=== PATIENT | female | born 1980 ===

== ENCOUNTER 2021-01-13 08:30 | Outpatient (RCR) | payer BC, SELFPAY ==
[2020-12-31 12:02] VITALS: BMI 18.3
--- NOTE | 2020-12-31 12:30 | PC.ADMIT ---
Patient is a 40 year old female who is in her second trimester of with her first child. She was referred by [facility] inpatient unit where she was hospitalized from 12/23/20-12/28/20 for an increase in depression with SI with multiple plans including overdosing on her medication. Currently patient denied SI. She reports increased anxiety with panic attacks. Patient reports long history of depression and anxiety. Patient reports trigger to recent episode was learning she was . Not sure if she wants to continue the . Patient struggling with obsessive worry regarding having the necessary parental skills. In addition, patient reports her brother has hemophilia and she is a carrier and is concerned that her unborn son will contract the disease as she stated he has a 50 percent change. Patient reports losing weight during her first trimester d/t nausea and vomiting and reports losing weight in the second trimester d/t depression and anxiety which caused a decrease in appetite and decrease in fluid intake. She reports that her appetite has improved since hospitalization and has gained 7-8 lbs back of the 15 lbs she had lost. She currently reports meeting her calorie goals and fluid intake. Patient is currently underweight. Patient has a high risk and is being followed by Dr Margy FLORES. 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 Patient does report that her spouse is supportive. Patient is attending PHP as a step down to treatment. Looking into taking FMLA from work. Patient is alert and oriented x4. Calm and cooperative. Denied SI. Patient gave permission to email her a copy of her safety plan. I asked patient if she started to feel unsafe who could she contact and she stated her . Patient has the crisis number if needed. Patient reports taking her medications as prescribed. Medications reconciled with patient and [facility] inpatient unit d/c paperwork.
--- NOTE | 2020-12-31 13:19 | P.HPPSP_ITS ---
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 ) Narrative: Ms. Armas is a 40 year-old female, referred from the [facility] inpatient unit for continued stabilization of severe symptoms of depression and anxiety. She is currently 21 weeks . 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 She has no children. Client was hospitalized at [facility] from 12/23/20 through 12/28/20, after being referred by her outpatient psychiatrist for increased depression and SI. She had reported at that time that she was experiencing passive SI, ambivalence and indecisiveness about the , self-doubt, and panic attacks. She had also been experiencing severe hyperemesis. 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 She and her had also bought an older house that requires a lot of updating and work. 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 Upon interview today, client states that she currently is experiencing the same struggles that she was when she was hospitalized. She does however explain that she is not having thoughts of self harm, denies any SI. She describes symptoms today as ?incredible self-doubt about being able to be a parent . She states that she is considering termination of , and is trying to work through her feelings surrounding the at this time. Client reports that she was anxious during childhood, and developed depression while in college. She has had therapy in the past, and is also currently working with a psychiatrist. She currently does not have a therapist. Past medication trials include sertraline (did not help), and lexapro (worked well for a long time, then lost efficacy). Ashley reports that she was raised by both parents, and has a younger brother. She met all developmental milestones as expected, and graduated from high school and college. She is a registered nurse. She describes life growing up as supportive, and states that she had good relationships with both of her parents. Her younger brother has hemophilia. She was tearful during interview, and endorses depressed mood, anhedonia, low energy, low self-esteem, difficulty concentrating, and passive SI (no plan, no intent). Also endorses anxiety symptoms such as excessive worrying about parenting and her unborn child's health. She reports intrusive/obsessive thoughts regarding whether or not she should terminate her . She states that she is aware there is only a short window of time for her to make this decision. She is hoping to learn skills to help manage symptoms of anxiety and depression while in PHP, to process her feelings, and learn more effective coping skills going forward. Past Psychiatric History: IPLOC 1X, at [facility], 12/23/20 through 12/28/20. No hx of PHP, IOP. Hx of therapy, no therapist currently. Has outpatient psychiatrist, hx of treatment with SSRI's. 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 Mother was diagnosed with bipolar disorder at age 60. Social History: 7 years, supportive. No children. Works as nurse. Substance History: denies any substance use / abuse history Trauma History: None Diagnostics Vital Signs (24Hr): Body Mass Index 18.3 Meds/Allergies Allergies Allergies Allergy/AdvReac Type Severity Reaction Status Date / Time promethazine [From Phenergan] AdvReac Muscle Verified 12/31/20 11:21 Fasciculation Mental Status Exam Mental Status Exam Narrative: Well-developed, thin female, in NAD. Well groomed, appropriately dressed for age and occasion. Alert and oriented x4. And eye contact within normal limits. No involuntary movements noted, motor activity calm, posture within normal limits. Patient was, cooperative during interview. Speech was fluent, unimpaired, normal rate, rhythm, and volume. Cognition appears intact. Mood described as depressed and anxious. Affect depressed, anxious, client tearful during interview. No evidence of delusional thoughts or hallucinations noted or reported. Patient endorses passive SI, denies any type of plan or intent. Denies SIB. No HI. Memory intact., appears to be reliable historian. Judgment and insight fair. Ambulation not observed. Depressive Symptoms: Increased Anxiety, Diff. Making Decisions, Crying Spells, Loss of Int. in Activity, Feelings of Worthlessness, Hopelessness, Feelings of Guilt, Increased Fatigue, Thoughts of /Suicide (passive, no intnet/plan), Loss of Energy and Difficulty Concentrating Telehealth Telehealth Location of provider rendering services: practice address Location of patient: address on file Patient Identification confirmed using: Name, : Yes Telehealth method: video Patient verbally consented to treatment: Yes Patient verbally consented to billing insurance company: Yes Patient informed of any privacy concerns related to visit: Yes Time spent with patient (mins): 45 Assessment & Plan Assessment & Plan (1) Major depressive disorder, recurrent severe without psychotic features: Status: Acute Code(s): F33.2 - Major depressive disorder, recurrent severe without psychotic features Assessment and Plan: Client endorses symptoms of depression including decreased energy, poor concentration, anhedonia, guilt, passive SI. Currently taking mirtazapine, whi ch was started inpatient. Prozac has recently been increased to 80 mg daily several weeks ago. Client currently takes Wellbutrin SR 200 mg daily. Medications discussed, client would like to continue for now at these medications and dosages, as she has recently had to changes. She also expressed concern regarding the mirtazapine. Medication discussed, including risks/benefits. She states that she would prefer any medication changes be discussed with her outpatient psychiatrist, as she is concerned regarding her . Client was provided information regarding [employer] [facility] psychiatry website, and encouraged to peruse it. She also was given a toll free phone number in [place] regarding intra- mood Disorders support resources, such as chapters for local chapters of international support network, online support groups, etc. (2) Generalized anxiety disorder: Status: Acute Code(s): F41.1 - Generalized anxiety disorder Assessment and Plan: Client reports she is utilizing p.r.n. Klonopin 0.5 mg at night. She states that this is helping her to sleep, as she experiences anxiety more at bedtime. She also reports the mirtazapine is helping her to sleep. She states that she is experiencing obsessional thoughts, describes them as intrusive at times, regarding whether or not she will terminate , due to doubts regarding her ability to be a parent, and the possibility her son could have hemophilia. She states that this causes her great anxiety, and that she is trying to work through this decision making process. She believes that her increased anxiety has also caused her to have hyperemesis. She states that it has improved, and that she is taking Reglan for this. She states the mirtazapine has also helped increase her appetite. Assessment and Plan: 1. Continue current medication regimen. Client does not require any refills. 2. Follow-up as per protocol. 3. Continue to offer support and resources as appropriate. Patient educated on: diagnosis, medication risk/benefits, therapeutic strategies and medical condition Informed Consent: understands Reason for continued partial hosp. stay Substantial Risk for: harm to self, inability to function and med/psych decompensation Certification I certify that partial hospital treatment is medically necessary due to the symptoms and problems resulting from the patient's mental illness and the failure to treat the patient at the partial hospital level of care would likely result in the patient requiring inpatient psychiatric care which could not be prevented at a less intensive level of care.
--- NOTE | 2020-12-31 14:54 | PC.NURSE ---
Case opened in clinical team
--- NOTE | 2021-01-04 11:07 | P.PNPSP_ITS ---
Subjective Subjective Date of Service: 01/04/21 Reason For Visit: Severe Major Depression Guardianship: No Medical Problems Affecting Mental Status: No Interim History: Ashley reports feeling okay today. Reports that she and her looked up support options online over weekend. They also plan to meet with a pediatric child day care center worker through [employer]. She is also considering an amniocentesis, that will help confirm as to whether her baby has hemophilia. She did report feeling an episode of panic / sense of impending doom yesterday, and took a clonazepam, with positive effect. No other psychiatric symptoms reported, no thoughts of self-harm reported. No safety concerns at this time. Medication Compliance: Yes Side effects from medications: No Attending Groups: Yes Review of Systems Acute medical concerns: No Medical Review of Systems: unchanged Review of Systems Review of Systems Yes all other systems are reviewed and are negative Reports Normal hearing present Cardiovascular: Reports no additional cardiovascular complaints Respiratory: Reports no additional respiratory complaints Gastrointestinal: Reports no additional gastrointestinal complaints Genitourinary: Reports no additional female genitourinary complaints Reports as per HPI and Reports Normal hearing present Psychiatric: Reports no additional psychiatric complaints Endocrine: Reports no additional endocrine complaints Hematologic/Lymphatic: Reports no additional hematologic/lymphatic complaints Allergic/Immunologic: Reports no additional allergic/immunologic complaints Mental Status Exam Mental Status Exam Narrative: Well developed, well nourished thin female, in no apparent distress. Patient Appearance: Well Grooomed and Appropriate Patient Orientation: Person, Place, Time and Situation Level of Consciousness: Awake, Appropriate and Alert Patient Behavior: Appropriate, Cooperative and Good Eye Contact Mood Description: Appropriate, Depressed and Anxious Affect Description: Appropriate, Depressed and Anxious Patient Cognition Impaired: No Ability to Follow Directions: Excellent Speech Pattern: Clear, Appropriate and Coherent Memory Description: Intact Hallucinations: None Delusions: Not Present Thought Process: Intact, Goal Oriented and Linear Thought Content: positive for Intact, positive for Goal Oriented and positive for Linear Depressive Symptoms: Increased Anxiety, Diff. Making Decisions, Crying Spells, Sleeping More Than Usual, Hopelessness, Feelings of Guilt, Unhappiness, Increased Fatigue, Loss of Energy and Difficulty Concentrating Judgement: Fair Diagnostics Vital Signs (24Hr): Body Mass Index 18.3 Assessment & Plan Assessment & Plan (1) Generalized anxiety disorder: Status: Acute Code(s): F41.1 - Generalized anxiety disorder Assessment and Plan: Patient reports ongoing anxiety. Reports needing to take a Klonopin yesterday as she had a sense of impending doom / panic. Reports that the Klonopin was effective. We discussed other tactics as well, such as using a mantra when experiencing the panic attack, and helping talk herself through them. (2) Major depressive disorder, recurrent severe without psychotic features: Status: Acute Code(s): F33.2 - Major depressive disorder, recurrent severe without psychotic features Assessment and Plan: Ashley reports that the weekend was difficult at times. She reports that she and her looked up various support options online, and that she found this helpful. She does report that she and her plan to speak with somebody from Pediatric Hematology with [facility]. She also plans to have an amnioc entesis, as that will help regarding if her unborn baby has hemophilia. No active SI reported, no safety concerns. She reports current medications appear to be helping, does not want a medication change at this time. Assessment and Plan: 1. Continue with current medications. 2. follow-up as per protocol. Patient educated on: diagnosis, medication risk/benefits and therapeutic strategies Informed Consent: understands Certification I certify that partial hospital treatment is medically necessary due to the symptoms and problems resulting from the patient's mental illness and the failure to treat the patient at the partial hospital level of care would likely result in the patient requiring inpatient psychiatric care which could not be prevented at a less intensive level of care. Greater than 50% of the session was spent on counseling and/or coordination of care Discharge Plan Discharge Attending provider: Ramon Houston Medications: No Action fluoxetine 40 mg Capsule 80 mg PO DAILY RF: 0 clonazepam 0.5 mg Tablet 0.5 mg PO DAILY PRN (Reason: Anxiety) RF: 0 metoclopramide HCl 10 mg Tablet 10 mg PO Q6H PRN (Reason: Nausea) RF: 0 cholecalciferol (vitamin D3) [Vitamin D3] 25 mcg (1,000 unit) Capsule 25 mcg PO DAILY RF: 0 bupropion HCl 200 mg Tablet Sustained-Release 12 Hr 200 mg PO DAILY RF: 0 mirtazapine 7.5 mg Tablet 7.5 mg PO BEDTIME RF: 0 B12 Active 1,000 mcg Tablet,Chewable 1,000 mcg PO DAILY RF: 0 Duet DHA 29-1-250 mg Combo Pack 1 pkg PO DAILY RF: 0 Telehealth Telehealth Location of provider rendering services: practice address Location of patient: address on file Patient Identification confirmed using: Name, : Yes Telehealth method: video Patient verbally consented to treatment: Yes Patient verbally consented to billing insurance company: Yes Patient informed of any privacy concerns related to visit: Yes Time spent with patient (mins): 15
--- NOTE | 2021-01-11 15:39 | P.PNPSP_ITS ---
Subjective Subjective Date of Service: 01/11/21 Reason For Visit: Severe Major Depression Guardianship: No Medical Problems Affecting Mental Status: Yes () Interim History: Ashley reports feeling ?a little more down town ?, ?a little more anxious ?. She explains that she had a difficult weekend. When asked what was happening, she stated it was the same things that she has been worried about, and that she does not believe she is going to have feel any relief until her baby is born. She did have amniocentesis completed, waiting for results. Medication Compliance: Yes Side effects from medications: No Review of Systems Acute medical concerns: No Medical Review of Systems: unchanged Review of Systems Review of Systems Yes all other systems are reviewed and are negative Constitutional: Reports no additional constitutional complaints Eyes: Reports no additional eye complaints Reports Normal hearing present Cardiovascular: Reports no additional cardiovascular complaints Respiratory: Reports no additional respiratory complaints Gastrointestinal: Reports no additional gastrointestinal complaints Genitourinary: Reports no additional female genitourinary complaints Musculoskeletal: Reports no additional musculoskeletal complaints Skin/Breast: Reports system reviewed and no additional complaints, except as docu Reports system reviewed and no additional complaints, except as documented and Reports Normal hearing present Psychiatric: Reports anxiety and Reports depression Endocrine: Reports no additional endocrine complaints Hematologic/Lymphatic: Reports no additional hematologic/lymphatic complaints Allergic/Immunologic: Reports no additional allergic/immunologic complaints Mental Status Exam Mental Status Exam Narrative: Well-nourished, well-developed female. No involuntary movements noted, motor activity calm. Posture within normal limits. Ambulation not observed. Patient Appearance: Well Grooomed and Appropriate Patient Orientation: Person, Place, Time and Situation Level of Consciousness: Awake, Appropriate and Alert Patient Behavior: Appropriate, Cooperative and Crying Mood Description: Appropriate, Depressed and Anxious Affect Description: Appropriate, Depressed, Anxious and Sad Patient Cognition Impaired: No Ability to Follow Directions: Excellent Speech Pattern: Clear, Appropriate, Spontaneous Speech and Coherent Memory Description: Intact Hallucinations: None Delusions: Not Present Thought Content: positive for Intact, positive for Goal Oriented, positive for Linear and positive for Perseveration Depressive Symptoms: Increased Anxiety, Crying Spells, Loss of Int. in Activity, Feelings of Worthlessness, Hopelessness, Feelings of Guilt, Unhappiness, Increased Fatigue and Low Self Esteem Judgement: Fair Diagnostics Vital Signs (24Hr): Body Mass Index 18.3 Assessment & Plan Assessment & Plan (1) Major depressive disorder, recurrent severe without psychotic features: Status: Acute Code(s): F33.2 - Major depressive disorder, recurrent severe without psychotic features Assessment and Plan: Ashley continues feeling depressed and anxious. We discussed the 2 concurrent issues, 1 being chances her son could be born with hemophilia. When explored further, she does report that her brother required blood transfusions several times weekly, as well as having had multiple visits to the hospital growing. Her other concern is that she truly does not believe in herself as a mother, and questions her ability to be a good mother. Client was given phone number for to contact people/ support coordinators with international support program. One person was a [facility] wide contact. Other person [facility] for [facility] . This person is also listed online as a licensed therapist locally that specializes in mental health. Ashley expressed hope regarding this, and stated that she would contact this person, as she is currently no working with a therapist. We discussed current medications. She meet with prescriber later this week. (2) Generalized anxiety disorder: Status: Acute Code(s): F41.1 - Generalized anxiety disorder Assessment and Plan: 1. Continue current medication regimen as prescribed by outpatient prescriber. 2. Follow-up as per protocol. Patient educated on: diagnosis, medication risk/benefits and therapeutic strategies Informed Consent: understands Reason for contiued partial hosp. stay Substantial Risk for: inability to function and med/psych decompensation Certification I certify that partial hospital treatment is medically necessary due to the symptoms and problems resulting from the patient's mental illness and the failure to treat the patient at the partial hospital level of care would likely result in the patient requiring inpatient psychiatric care which could not be prevented at a less intensive level of care. I spent minutes with the patient and/or on the patient floor today, greater than?50% of which was spent counseling/coordinating care. Discharge Plan Discharge Attending provider: Ramon Houston Medications: No Action fluoxetine 40 mg Capsule 80 mg PO DAILY RF: 0 clonazepam 0.5 mg Tablet 0.5 mg PO DAILY PRN (Reason: Anxiety) RF: 0 metoclopramide HCl 10 mg Tablet 10 mg PO Q6H PRN (Reason: Nausea) RF: 0 cholecalciferol (vitamin D3) [Vitamin D3] 25 mcg (1,000 unit) Capsule 25 mcg PO DAILY RF: 0 bupropion HCl 200 mg Tablet Sustained-Release 12 Hr 200 mg PO DAILY RF: 0 mirtazapine 7.5 mg Tablet 7.5 mg PO BEDTIME RF: 0 B12 Active 1,000 mcg Tablet,Chewable 1,000 mcg PO DAILY RF: 0 Duet DHA 29-1-250 mg Combo Pack 1 pkg PO DAILY RF: 0
--- NOTE | 2021-01-13 11:52 | PC.NURSE ---
Patient is scheduled to discharge from [facility] today. Patient reports feeling good about discharge however nervous about going back to work. Patient reports she called the wellness team in [place] for a therapist and is waiting for them to call her back, she stated they have openings for new patient's. Reviewed patient medications with patient. Patient reports taking medications as prescribed. Denied safety concerns, no SI. Has the crisis [employer] number if needed and she stated she could reach out to her psychiatrist or as well if needed in the future.
== END 2021-01-14 07:13 | disposition home or self-care (01) ==
LOC: HO.PHPA 08:30
PROVIDERS: Visit Provider Psychiatry & Neurology Psychiatry
DX: F33.2 Major depressive disorder, recurrent severe without psychotic features (principal); F41.1 Generalized anxiety disorder; Z79.899 Other long term (current) drug therapy
CPT/HCPCS: 90853